=== PATIENT | male | born 1975 | race Two or more races ===

== ENCOUNTER 2020-09-02 05:55 | Day surgery (SDC) | payer OTHER | END 2020-09-02 11:00 | disposition home or self-care (01) | LOC: CIR.AMB 05:55 → SURH 07:00 → EDSTATUS 07:00 → CIR.AMB 11:00 | PROVIDERS: ATTEND Surgery | DX: K42.0 Umbilical hernia with obstruction, without gangrene (principal); Z20.822 Contact with and (suspected) exposure to COVID-19 ==